=== PATIENT | male | born 1980 | race African-American/Black ===

== ENCOUNTER 2023-09-09 06:33 | Emergency (ER) | payer OTHER ==
[~2023-09-09] VITALS: Ht 172.7 cm; Wt 74.2 kg
[2023-09-09 07:26] VITALS: BP 113/80; PULSE 80; RESP 17; TEMP 98.3; O2SAT 99
[2023-09-09] MEDS ORDERED: SULF1TAB49 PO (07:47)
[2023-09-09] MEDS ORDERED: CEPH-585 PO (07:47)
[2023-09-09] MEDS: cephalexin 250mg capsule PO ONE (08:17)
== END 2023-09-09 08:33 | disposition home or self-care (01) ==
LOC: ER 06:34
DX: L02.413 Cutaneous abscess of right upper limb (principal); F15.90 Other stimulant use, unspecified, uncomplicated; F19.10 Other psychoactive substance abuse, uncomplicated; Z79.2 Long term (current) use of antibiotics
CPT/HCPCS: 99283